=== PATIENT | female | born 1980 | race Caucasian/White ===

== ENCOUNTER 2020-07-16 16:22 | Emergency (ER) | payer OTHER ==
[~2020-07-16] VITALS: Ht 167.6 cm; Wt 123.0 kg
[2020-07-16 16:34] VITALS: BP 118/74
--- NOTE | 2020-07-16 17:02 | NUR ---
PT CHANGED INTO [facility] IN [facility] AT THIS TIME WITH SAWYER PACHECO, AT BS FOR PT HISTORY AND ASSESSMENT. PT VS MONITORS ON AND PT VSS AT THIS TIME. PT HAS CALL LIGHT WITHIN REACH AND VERBALIZES UNDERSTANDING OF ER PROCESS AND POC. PT PROVIDES UA AT THIS TIME. UA SENT TO LAB. PT DENIES ANY IMMEDIATE NEEDS AT THIS TIME; AWAITING NEW ORDERS FROM ERP.
[2020-07-16 17:11] LABS: MICROSCOPIC AUTO
[2020-07-16 17:12] LABS: BASOPHILS % (AUTO) 1 % (0-1); EOSINOPHILS % (AUTO) 2 % (1-7); LYMPHOCYTES % (AUTO) 13 % (22-44); MEAN CORPUSCULAR HEMOGLOBIN 33.1 pg (27.0-34.8); MEAN CORPUSCULAR HGB CONC 34.5 g/dL (32.4-35.8); MEAN PLATELET VOLUME 7.4 fL (7.4-10.4); MONOCYTES % (AUTO) 5 % (2-9); NEUTROPHILS % (AUTO) 80 % (42-75); PLATELET COUNT 272 x10^3/uL (130-400); RED BLOOD COUNT 3.77 x10^6/uL (3.82-5.3); RED CELL DISTRIBUTION WIDTH 15.4 % (9.6-15.2)
[2020-07-16 17:17] LABS: MD NO
[2020-07-16 17:25] LABS: ALANINE AMINOTRANSFERASE 22 U/L (12-78); ANION GAP 6 mmol/L (5-15); CALCIUM 8.3 mg/dL (8.5-10.1); CHLORIDE 109 mmol/L (98-107); CREATININE 0.45 mg/dL (0.55-1.02)
--- NOTE | 2020-07-16 17:37 | NUR ---
PT BACK FROM US VIA [facility] AT THIS TIME.
[2020-07-16 17:42] LABS: ALKALINE PHOSPHATASE 65 U/L (45-117); BILIRUBIN,TOTAL 0.2 mg/dL (0.2-1.0); TOTAL PROTEIN 6.6 g/dL (6.4-8.2)
--- NOTE | 2020-07-16 19:11 | NUR ---
PT D/C WITH D/C SUMMARY AND SCRIPTS. ALL QUESTIONS ANSWERED. PT AMBULATES TO REGISTRATION DESK WITH STEADY GAIT FOR D/C HOME. PT DENIES ANY OTHER NEEDS PERTAINING TO THIS VISIT.
== END 2020-07-16 19:14 | disposition home or self-care (01) ==
LOC: ED 17:59
DX: O20.0 Threatened abortion (principal); O99.331 Smoking (tobacco) complicating pregnancy, first trimester; R10.30 Lower abdominal pain, unspecified; F17.200 Nicotine dependence, unspecified, uncomplicated; Z3A.13 13 weeks gestation of pregnancy
CPT/HCPCS: 36415; 76830; 80053; 81001; 83690; 84703; 85025; 86901; 87077; 87086; 87186; 99284